=== PATIENT | female | born 1990 | race Asian ===

== ENCOUNTER 2016-07-01 19:59 | Emergency (ER) | payer OTHER ==
[2016-07-01 20:18] VITALS: BMI 35.2
== END 2016-07-01 23:54 | disposition home or self-care (01) ==
LOC: FBC 19:59 → FBCOUT 19:59 → ED 19:59 → FBC 19:59 → EDSTATUS 21:30 → ED 23:54
DX: O26.892 Other specified pregnancy related conditions, second trimester (principal); M62.838 Other muscle spasm; J45.909 Unspecified asthma, uncomplicated; Z3A.29 29 weeks gestation of pregnancy; V43.52XA Car driver injured in collision with other type car in traffic accident, initial encounter; Y92.488 Other paved roadways as the place of occurrence of the external cause; Z79.899 Other long term (current) drug therapy; Z87.891 Personal history of nicotine dependence
CPT/HCPCS: 99282 ×2; 59050; G0463